=== PATIENT | male | born 1990 | race Caucasian/White ===

== ENCOUNTER 2017-07-13 18:40 | Emergency (ER) | payer BC ==
[~2017-07-13] VITALS: Ht 167.6 cm; Wt 68.0 kg
[2017-07-13 19:06] LABS: BASOPHIL % 0.3 % (0-2); PLATELET COUNT 364 x10^3mcL (130-400); RED CELL DISTRIBUTION WIDTH 13.3 % (11.5-14.5)
[2017-07-13 19:18] LABS: CALCIUM 9.4 mg/dL (8.5-10.1); CARBON DIOXIDE 27.4 mmol/L (21-32); CHLORIDE SERUM 104 mmol/L (98-107); CREATININE SERUM 1.2 mg/dL (0.7-1.3); GFR1 > 60 mL/min; GLUCOSE SERUM 119 mg/dL (74-106); POTASSIUM SERUM 3.4 mmol/L (3.5-5.1); SODIUM SERUM 141 mmol/L (136-145)
[2017-07-13 19:23] LABS: ALBUMIN 4.1 g/dL (3.4-5.0); ALKALINE PHOSPHATASE 77 U/L (46-116); ALT/SGPT 33 U/L (16-63); AST/SGOT 33 U/L (15-37); BILIRUBIN TOTAL 1.08 mg/dL (0.20-1.00); TOTAL PROTEIN, SERUM 8.2 g/dL (6.4-8.2)
[2017-07-13 20:33] VITALS: BP 143/82
== END 2017-07-13 20:34 | disposition home or self-care (01) ==
LOC: ED 18:40
PROVIDERS: Emergency Medicine
DX: R56.9 Unspecified convulsions (principal)
CPT/HCPCS: 82962; G0480; J2405; J7030

== ENCOUNTER 2017-07-19 04:52 | Inpatient (IN) | payer BC ==
[~2017-07-19] VITALS: Ht 167.6 cm; Wt 60.8 kg
[2017-07-19 05:56] LABS: BASOPHIL % 0.5 % (0-2); PLATELET COUNT 336 x10^3mcL (130-400); RED CELL DISTRIBUTION WIDTH 13.1 % (11.5-14.5)
[2017-07-19 06:02] LABS: CALCIUM 9.1 mg/dL (8.5-10.1); CARBON DIOXIDE 28.5 mmol/L (21-32); CHLORIDE SERUM 102 mmol/L (98-107); GFR1 > 60 mL/min; GLUCOSE SERUM 159 mg/dL (74-106); POTASSIUM SERUM 3.2 mmol/L (3.5-5.1); SODIUM SERUM 136 mmol/L (136-145)
[2017-07-19 06:06] LABS: ALBUMIN 3.8 g/dL (3.4-5.0); ALKALINE PHOSPHATASE 72 U/L (46-116); ALT/SGPT 29 U/L (16-63); AST/SGOT 24 U/L (15-37); BILIRUBIN TOTAL 0.56 mg/dL (0.20-1.00); TOTAL PROTEIN, SERUM 7.8 g/dL (6.4-8.2)
[2017-07-19 08:57] LABS: APPEARANCE CSF CLEAR; COLOR CSF COLORLESS; RBC CSF 0 /cumm (0); VOLUME CSF 5.5 mL; WBC CSF 0 /cumm (0-5)
[2017-07-19 09:05] LABS: APPEARANCE CSF CLEAR; COLOR CSF COLORLESS; RBC CSF 0 /cumm (0); VOLUME CSF 5.5 mL; WBC CSF 0 /cumm (0-5)
[2017-07-19 09:15] LABS: TOTAL PROTEIN CSF 31.7 mg/dL (15-45)
[2017-07-19 09:20] LABS: MAGNESIUM 1.8 mg/dL (1.8-2.4); PHOSPHOROUS 1.7 mg/dL (2.5-4.9)
[2017-07-19 09:31] LABS: FREE T4 1.07 ng/dL (0.76-1.46); FREE THYROXINE INDEX 2.9 ug/dL (1.4-4.5); T4(THYROXINE) 8.3 ug/dL (4.7-13.3)
[2017-07-19 09:35] LABS: T3 TOTAL 1.14 ng/mL
[2017-07-19 09:49] LABS: CHOLESTEROL/HDL RATIO 1.9
[2017-07-19 13:23] VITALS: BP 141/89
[2017-07-19 16:13] VITALS: BP 134/90
[2017-07-19 17:21] LABS: UA SPECIFIC GRAVITY 1.015 (1.005-1.035); urine erythrocyte NEGATIVE (NEGATIVE)
[2017-07-19 17:27] LABS: microscopic required? YES
[2017-07-19 17:36] LABS: AMPHETAMINE QUAL UR NONE DETECTED (NEG <=1000)
[2017-07-19 20:25] VITALS: BP 143/93
[2017-07-20 05:11] VITALS: BP 136/91
[2017-07-20 07:09] LABS: BASOPHIL % 0.2 % (0-2); PLATELET COUNT 301 x10^3mcL (130-400); RED CELL DISTRIBUTION WIDTH 13.4 % (11.5-14.5)
[2017-07-20 07:22] LABS: CALCIUM 8.7 mg/dL (8.5-10.1); CARBON DIOXIDE 25.8 mmol/L (21-32); CHLORIDE SERUM 103 mmol/L (98-107); CREATININE SERUM 0.7 mg/dL (0.7-1.3); GFR1 > 60 mL/min; GLUCOSE SERUM 108 mg/dL (74-106); PHOSPHOROUS 2.7 mg/dL (2.5-4.9); POTASSIUM SERUM 3.7 mmol/L (3.5-5.1); SODIUM SERUM 137 mmol/L (136-145)
[2017-07-20 08:57] VITALS: BP 142/94
[2017-07-20] MEDS ORDERED: LEXAPRO10 MG PO (10:37)
[2017-07-20 11:08] VITALS: BP 142/94
== END 2017-07-20 11:17 | disposition left against medical advice (07) | DRG 100 ==
LOC: ED 04:52 → DU 06:40 → MU 07-20 09:39
PROVIDERS: Emergency Medicine; ADMIT Family Medicine
DX: G40.909 Epilepsy, unspecified, not intractable, without status epilepticus (principal); G92 Toxic encephalopathy; E72.4 Disorders of ornithine metabolism; F41.9 Anxiety disorder, unspecified; F12.90 Cannabis use, unspecified, uncomplicated; E87.6 Hypokalemia; E83.39 Other disorders of phosphorus metabolism; R73.03 Prediabetes; G47.00 Insomnia, unspecified; D64.9 Anemia, unspecified; Z53.21 Procedure and treatment not carried out due to patient leaving prior to being seen by health care provider; F14.10 Cocaine abuse, uncomplicated; D72.829 Elevated white blood cell count, unspecified; F43.9 Reaction to severe stress, unspecified; S43.005A Unspecified dislocation of left shoulder joint, initial encounter; W19.XXXA Unspecified fall, initial encounter; Y93.89 Activity, other specified; Z72.89 Other problems related to lifestyle; Y92.89 Other specified places as the place of occurrence of the external cause; Y99.8 Other external cause status
CPT/HCPCS: 83880; 84439; 86788; 86789; G0480; J0133; J0696; J2060; J2250; J2270; J2704; J3010; J3370; J3490; J7030; Q0092

== ENCOUNTER 2019-08-14 02:14 | Emergency (ER) | payer OTHER ==
[~2019-08-14] VITALS: Ht 167.6 cm; Wt 81.6 kg
[~2019-08-14 02:14] MED LIST: LEXAPRO10 MG PO
[2019-08-14 02:17] VITALS: BP 141/105; Ht 167.6 cm; Wt 81.6 kg
== END 2019-08-14 06:05 | disposition other institution (70) ==
LOC: ED 02:14
DX: G89.29 Other chronic pain (principal); M25.512 Pain in left shoulder

== ENCOUNTER 2019-08-14 02:56 | Emergency (ER) | payer OTHER | END 2019-08-14 06:05 | disposition other institution (70) | LOC: ED 02:56 | DX: Z02.89 Encounter for other administrative examinations (principal) ==

== ENCOUNTER 2020-08-30 04:36 | Emergency (ER) | payer SELFPAY | END 2020-08-30 05:03 | disposition left against medical advice (07) | LOC: ED 04:36 | DX: Z53.21 Procedure and treatment not carried out due to patient leaving prior to being seen by health care provider (principal) ==

== ENCOUNTER 2020-08-30 05:34 | Emergency (ER) | payer SELFPAY ==
[~2020-08-30] VITALS: Ht 167.6 cm; Wt 80.7 kg
[2020-08-30 05:49] VITALS: Ht 167.6 cm; Wt 80.7 kg
[2020-08-30 06:46] VITALS: BP 123/99
== END 2020-08-30 06:46 | disposition home or self-care (01) ==
LOC: ED 05:34
DX: F15.20 Other stimulant dependence, uncomplicated (principal)